=== PATIENT | male | born 1945 | race Caucasian/White ===

== ENCOUNTER 2022-01-13 19:13 | Inpatient (IN) ==
[2022-01-13] MEDS ORDERED: Ondansetron 4 MG/2 ML VIAL IVP PRN (22:52)
[2022-01-13] MEDS ORDERED: Naloxone 0.4 MG/ML INJ IVP PRN (22:52)
[2022-01-14 01:58] LABS: Mean Corpuscular Volume 105.1 fL (83.0-100.0)
[2022-01-14 01:59] LABS: Basophils % 0.2 %; Eosinophils # 0.1 K/mcL (0.0-0.6); Eosinophils % 0.9 %; Hematocrit 28.6 % (37.5-50.1); Hemoglobin 8.2 g/dL (12.9-16.9); Immature Granulocytes % 1.7 % (0-4); Lymphocytes # 1.4 K/mcL (0.6-4.6); Lymphocytes % 12.9 %; Mean Corpuscular HGB Conc 28.7 g/dL (31.6-35.5); Mean Corpuscular Hemoglobin 30.1 pg (28.0-33.3); Monocytes # 1.5 K/mcL (0.0-1.3); Monocytes % 14.3 %; Neutrophils # 7.6 K/mcL (1.6-8.9); Nucleated Red Blood Cells 0.2 /100 WBC (0); Platelet Count 181 K/mcL (140-400); Red Blood Count 2.72 M/mcL (4.19-5.50); Red Cell Distribution Width 22.8 % (11.5-14.5); White Blood Count 10.8 K/mcL (4.3-11.1)
[2022-01-14 02:04] LABS: INR 1.2; Prothrombin Time 13.7 Seconds (9.4-12.1)
[2022-01-14 02:07] LABS: Activated Partial Thrombo Time 30.8 Seconds (26.0-36.0)
[2022-01-14 02:21] LABS: Albumin 2.6 g/dL (3.5-5.7); Albumin/Globulin Ratio 0.7 (1.1-2.2); Bilirubin,Direct 0.1 mg/dL (0.0-0.2); Bilirubin,Indirect 0.3 mg/dL (0.0-1.0); Bilirubin,Total 0.4 mg/dL (0.3-1.0); Globulin 3.8 g/dL (2.4-3.5); Magnesium 2.1 mg/dL (1.6-2.6); Phosphorous 5.5 mg/dL (2.7-4.5); Potassium 5.1 mEq/L (3.5-5.1); Total Protein 6.4 g/dL (6.4-8.9)
[2022-01-14 02:27] LABS: Thyroid Stimulating Hormone 1.904 mcIU/mL (0.340-5.600)
[2022-01-14 03:17] LABS: Anisocytosis 3+ (Not Present); Hypochromasia Present (Not Present); Macrocytosis Present (Not Present)
[2022-01-14 03:18] LABS: Platelet Estimate Normal (Normal); Polychromasia 1+ (Not Present)
[2022-01-14] MEDS ORDERED: *HR* Dextrose 50 % in Water (Syg) 50 ML SYRINGE IVP PRN (10:01)
[2022-01-14] MEDS ORDERED: D5% in Water 1,000 ML IVC PRN (10:01)
[2022-01-14] MEDS ORDERED: Dextrose Gel 15 GM/37.5 ML TUBE PO PRN ×2 (10:01)
[2022-01-14] MEDS ORDERED: 0.9 % Sodium Chloride 250 ML IVC PRN (10:18)
[2022-01-14] MEDS ORDERED: 0.9 % Sodium Chloride 2,000 ML PRIME SCH (10:30)
[2022-01-14 10:56] LABS: Estimated Average Glucose 131 mg/dl; Hemoglobin A1C 6.2 %
[2022-01-14] MEDS: Insulin LISPRO 300 UNITS/3 ML VIAL SUBQ SCH ×3 (12:23→20:55)
[2022-01-14] MEDS: Calcium Acetate 667 MG CAPSULE PO SCH ×2 (12:25→17:14)
[2022-01-14 13:50] LABS: Hepatitis B Surface Antibody < 3.10 mIU/mL
[2022-01-14 14:01] LABS: Hepatitis B Surface Antigen Nonreactive (Nonreactive)
[2022-01-15] MEDS: Insulin LISPRO 300 UNITS/3 ML VIAL SUBQ SCH ×4 (07:25→21:51)
[2022-01-15] MEDS: Loratadine 10 MG TABLET PO SCH (08:22)
[2022-01-15] MEDS: calcium polycarbophiL 625 MG TABLET PO SCH (08:22)
[2022-01-15] MEDS: Gabapentin 300 MG CAPSULE PO SCH (08:22)
[2022-01-15] MEDS: carvediloL 6.25 MG TABLET PO SCH ×2 (08:22→22:04)
[2022-01-15] MEDS: Folic Acid 1 MG TABLET PO SCH (08:23)
[2022-01-15] MEDS: Calcium Acetate 667 MG CAPSULE PO SCH ×3 (08:23→16:28)
[2022-01-15 09:05] LABS: Red Cell Distribution Width 23.1 % (11.5-14.5)
[2022-01-15 09:06] LABS: Hematocrit 29.3 % (37.5-50.1); Hemoglobin 8.3 g/dL (12.9-16.9); Lymphocytes # 1.3 K/mcL (0.6-4.6); Mean Corpuscular HGB Conc 28.3 g/dL (31.6-35.5); Mean Corpuscular Volume 105.8 fL (83.0-100.0); Mean Platelet Volume 11.1 fL (9.4-12.4); Platelet Count 179 K/mcL (140-400); Red Blood Count 2.77 M/mcL (4.19-5.50); White Blood Count 9.6 K/mcL (4.3-11.1)
[2022-01-15 09:25] LABS: Albumin 2.8 g/dL (3.5-5.7); Albumin/Globulin Ratio 0.7 (1.1-2.2); Bilirubin,Total 0.5 mg/dL (0.3-1.0); Globulin 3.9 g/dL (2.4-3.5); Potassium 4.4 mEq/L (3.5-5.1); Total Protein 6.7 g/dL (6.4-8.9)
[2022-01-15 09:55] LABS: Monocytes # 0.8 K/mcL (0.0-1.3); Neutrophils # 7.5 K/mcL (1.6-8.9); Platelet Estimate Normal (Normal)
[2022-01-15] MEDS: Acetaminophen 325 MG TABLET PO PRN ×2 (11:41→17:30)
[2022-01-16 06:37] VITALS: PULSE 70; O2SAT 100
[2022-01-16] MEDS: Insulin LISPRO 300 UNITS/3 ML VIAL SUBQ SCH ×3 (07:39→16:25)
[2022-01-16] MEDS: carvediloL 6.25 MG TABLET PO SCH (08:18)
[2022-01-16] MEDS: Loratadine 10 MG TABLET PO SCH (08:18)
[2022-01-16] MEDS: Folic Acid 1 MG TABLET PO SCH (08:19)
[2022-01-16] MEDS: Calcium Acetate 667 MG CAPSULE PO SCH ×3 (08:19→16:26)
[2022-01-16] MEDS: calcium polycarbophiL 625 MG TABLET PO SCH (08:19)
[2022-01-16] MEDS: Gabapentin 300 MG CAPSULE PO SCH (08:19)
[2022-01-16] MEDS ORDERED: Albumin 25% 25gram/100mL 25 GM/100 ML IV.SOLN IVPB PRN (08:48)
[2022-01-16] MEDS ORDERED: 0.9 % Sodium Chloride 250 ML IVC PRN (08:48)
[2022-01-16] MEDS ORDERED: 0.9 % Sodium Chloride 2,000 ML PRIME SCH (09:00)
[2022-01-16 09:14] LABS: Calcium 7.9 mg/dL (8.6-10.3); Potassium 4.7 mEq/L (3.5-5.1)
[2022-01-16 13:09] LABS: Mean Platelet Volume 11.4 fL (9.4-12.4)
[2022-01-16 13:10] LABS: Hematocrit 27.6 % (37.5-50.1); Hemoglobin 7.7 g/dL (12.9-16.9); Mean Corpuscular HGB Conc 27.9 g/dL (31.6-35.5); Mean Corpuscular Hemoglobin 29.7 pg (28.0-33.3); Mean Corpuscular Volume 106.6 fL (83.0-100.0); Platelet Count 206 K/mcL (140-400); Red Blood Count 2.59 M/mcL (4.19-5.50); Red Cell Distribution Width 22.6 % (11.5-14.5); White Blood Count 9.1 K/mcL (4.3-11.1)
[2022-01-16] MEDS ORDERED: *HR* Heparin 10,000 UNIT/10 ML VIAL IV PRN (13:21)
[2022-01-16 13:47] LABS: Anisocytosis 2+ (Not Present); Hypochromasia Present (Not Present); Lymphocytes # 1.2 K/mcL (0.6-4.6); Monocytes # 0.9 K/mcL (0.0-1.3); Platelet Estimate Normal (Normal); Reactive Lymphocytes Present (Not Present); Toxic Granulation Present (Not Present)
[2022-01-16 16:06] VITALS: BP 116/72; TEMP 98.1
== END 2022-01-16 17:22 | disposition other institution (70) | DRG 640 ==
LOC: 2ANU → SUATTDRO 01-14 18:50
PROVIDERS: ADMIT Internal Medicine; ATTEND Family Medicine